=== PATIENT | female | born 1950 | race Caucasian/White ===

== ENCOUNTER → 2016-10-09 | Outpatient (CLI) | payer OTHER ==
--- NOTE | 2016-10-09 15:45 | MA ---
Screening Digital Mammogram Clinical Indications: Routine screening. Technique: Standard cephalocaudal and mediolateral oblique projections are obtained. This examinati on is processed by the [employer] computer aided detection system. Comparison: June 2015, April 2014, April 2013 and September 2011 Breast density: B; There are scattered fibroglandular densities. Findings: CAD was reviewed. No suspicious findings are identified. Impression: Negative mammogram. . BI-RADS 1. Recommendation: Routine screening is recommended in one year. [facility] send [facility] result letter to the patient. Negative mammography should not preclude additional workup of a clinically suspicious finding. The patient's information is entered into a reminder system with a target due date for her next mammo gram.
== END ==
LOC: CIMAGING 12:21
DX: Z12.31 Encounter for screening mammogram for malignant neoplasm of breast (principal)
CPT/HCPCS: G0202

== ENCOUNTER → 2017-07-12 | Outpatient (CLI) | payer OTHER | LOC: FIMAGING 16:17 | PROVIDERS: ATTEND Physician Assistant | DX: M75.121 Complete rotator cuff tear or rupture of right shoulder, not specified as traumatic (principal); M75.81 Other shoulder lesions, right shoulder; M25.411 Effusion, right shoulder; M19.011 Primary osteoarthritis, right shoulder ==

== ENCOUNTER 2017-08-22 05:54 | Day surgery (SDC) | payer OTHER ==
[2017-08-22] MEDS ORDERED: LR 1,000 ML IV ONE (06:11)
[2017-08-22] MEDS ORDERED: ceFAZolin 2 GM/SWFI 2 GM/20 ML SYR IVP ONE (06:49)
--- NOTE | 2017-08-22 06:49 | PDHPUP ---
History & Physical Update H&P update statement: This history and physical update is based on an assessment of the patient which was completed after admission or registration (within 24 hours), but prior to the surgery/procedure. RRR CTAB 08/22/17
[2017-08-22] MEDS ORDERED: LIDOCAINE 1% 300 MG/30 ML SDV ONE (06:51)
[2017-08-22] MEDS ORDERED: BUPIVACAINE 0.5% 30 ML SDV ONE (06:51)
[2017-08-22] MEDS ORDERED: DEXAMETHASONE 10 MG/ML VIAL ONE (07:07)
[2017-08-22] MEDS ORDERED: MIDAZOLAM 2 MG/2 ML VIAL ONE ×2 (07:08→07:54)
[2017-08-22] MEDS ORDERED: PROPOFOL/EMULSION 500 MG/50 ML BOTTLE IV ONE (07:08)
[2017-08-22] MEDS ORDERED: LIDO/EPI 1% **for epidural** 30 ML SDV ONE (07:16)
[2017-08-22] MEDS ORDERED: LR 500 ML IV PRN (07:59)
[2017-08-22] MEDS ORDERED: ALBUTEROL 3 ML DEYVIAL IH PRN (07:59)
[2017-08-22] MEDS ORDERED: NALOXONE HCL 0.4 MG/ML INJ IVP PRN (07:59)
[2017-08-22] MEDS ORDERED: DEXAMETHASONE 4 MG/ML VIAL IVP PRN (07:59)
[2017-08-22] MEDS ORDERED: PROMETHAZINE HCL 25 MG/ML INJ IVP PRN (07:59)
[2017-08-22] MEDS ORDERED: HYDROCODONE/APAP 5/325 TAB PO PRN (07:59)
[2017-08-22] MEDS ORDERED: ONDANSETRON 4 MG/2 ML VIAL IVP PRN (07:59)
[2017-08-22] MEDS ORDERED: OXYCODONE/APAP 5/325 TAB PO PRN (07:59)
[2017-08-22] MEDS ORDERED: ACETAMINOPHEN 500 MG TAB PO PRN (07:59)
[2017-08-22] MEDS ORDERED: MEPERIDINE 25 MG/ML SYR IVP PRN (07:59)
--- NOTE | 2017-08-22 07:59 | PDANEPAE ---
ANE Past Medical History - Cardiovascular History Hx Hypertension: Yes Hx Arrhythmias: No Hx Chest Pain: No Hx Coronary Artery / Peripheral Vascular Disease: No Hx CHF / Valvular Disease: No Hx Palpitations: No Cardiovascular History Comment: NO CP - Pulmonary History Hx COPD: No Hx Asthma/Reactive Airway Disease: No Hx Recent Upper Respiratory Infection: No Hx Oxygen in Use at Home: No Hx Sleep Apnea: Yes Sleep Apnea Screening Result - Last Documented: Positive Pulmonary History Comment: DIO POS- [facility] SLEEP STUDY 5 Y AGO, USES CPAP - Neurologic History Hx Cerebrovascular Accident: No Hx Seizures: No Hx Dementia: No - Endocrine History Hx Diabetes: No - Renal History Hx Renal Disorders: No - Liver History Hx Hepatic Disorders: No - Neurological & Psychiatric Hx Hx Neurological and Psychiatric Disorders: Yes Neurological / Psychiatric History Comment: depression - Cancer History Hx Cancer: No - Congenital Disorder History Hx Congenital Disorders: No - GI History Hx Gastrointestinal Disorders: Yes Gastrointestinal History Comment: IBS - Other Health History Other Health History: Torn rotator cuff right shoulder. HX FX NOSE - Chronic Pain History Chronic Pain: No - Surgical History Prior Surgeries: 2013 R TKA. R KNEE SCOPE X2. L KNEE TIBIAL OSTEOYTOMY. L KNEE HARDWARE REM. TKA L 12 Y AGO. HYSTEROSCOPY '10. D AND C. LAP OVARIAN CYST ANE Review of Systems Review of Systems: - Exercise capacity METS (RN): 4 METS ANE Patient History - Allergies Allergies/Adverse Reactions: IV CONTRAST Allergy (Intermediate, Uncoded 08/16/15 11:29) Hives - Home Medications Home Medications: Losartan Potassium [Cozaar] 50 mg PO DAILY 09/26/15 [Last Taken Unknown] buPROPion XL [Wellbutrin Xl] 150 mg PO DAILY 08/07/17 [Last Taken Unknown] - NPO status NPO Since - Liquids (Date): 08/22/17 NPO Since - Liquids (Time): 04:45 NPO Since - Solids (Date): 08/21/17 NPO Since - Solids (Time): 20:00 - Smoking Hx Smoking Status: Former smoker - Family Anes Hx Family Hx Anesthesia Complications: NONE ANE Labs/Vital Signs - Vital Signs Blood Pressure: 163/93 Heart Rate: 72 Respiratory Rate: 16 O2 Sat (%): 95 Height: 160.02 cm Weight: 105.687 kg ANE Physical Exam - Airway Neck exam: FROM, short neck Mallampati Score: Class 1 Mouth exam: normal dental/mouth exam - Pulmonary Pulmonary: no respiratory distress, no rales or rhonchi, clear to auscultation, reduced air movement - Cardiovascular Cardiovascular: regular rate and rhythym, no murmur, rub, or gallop ANE Anesthesia Plan Anesthesia Plan: general endotracheal anesthesia Regional Anesthesia: single shot NB, supraclavicular BP NB
[2017-08-22] MEDS ORDERED: KETOROLAC 30 MG/1 ML SDV ONE (08:01)
[2017-08-22] MEDS ORDERED: SUGAMMADEX SODIUM 200 MG/2 ML VIAL IVP ONE (08:01)
[2017-08-22] MEDS ORDERED: ONDANSETRON 4 MG/2 ML VIAL ONE (08:01)
[2017-08-22] MEDS ORDERED: METOCLOPRAMIDE 10 MG/2 ML VIAL ONE (08:01)
[2017-08-22] MEDS ORDERED: RANITIDINE 50 MG/2 ML VIAL ONE (08:01)
[2017-08-22] MEDS ORDERED: ROCURONIUM 50 MG/5 ML VIAL ONE (08:01)
[2017-08-22] MEDS ORDERED: ROPIVACAINE HCL 150 MG/30 ML INJ ONE (08:02)
[2017-08-22] MEDS ORDERED: LIDOCAINE 2% 5 ML SDV ONE (08:02)
[2017-08-22] MEDS ORDERED: PROPOFOL 200 MG/20 ML VIAL ONE (08:38)
[2017-08-22] MEDS: EPINEPHrine 30 MG/30 ML MDV (0.1 MG/0.1 ML) ONE ×2 (09:33→09:37)
--- NOTE | 2017-08-22 09:52 | POSTOPPROG ---
Post Op Note Date of Operation: 08/22/17 Surgeon: Richard Rivas Helpdesk Analyst: Wendy Christensen PA-C Anesthesia: GET(General Endotracheal) Pre-op Diagnosis: right shoulder rotator cuff tear Post-op Diagnosis: right shoulder rotator cuff tear Procedure: right shoulder arthroscopy with labral debridment, RCR, biceps tenotomy Inf/Abcess present in the surg proc area at time of surgery?: No Depth: Superfical (Skin SQ) EBL: Minimal
[2017-08-22] MEDS ORDERED: fentaNYL 100 MCG/2 ML INJ ONE (10:21)
[2017-08-22] MEDS: fentaNYL 100 MCG/2 ML INJ IVP PRN ×2 (10:23→10:43)
[2017-08-22 10:40] VITALS: RESP 18
--- NOTE | 2017-08-22 10:53 | POSTANESTH ---
Post Anesthetic Evaluation Cardiovascular Status: Normal, Stable Respiratory Status: Normal, Stable Level of Consciousness/Mental Status: Can Participate in Eval Pain Control: Adequate, Prn Tx Ordered Nausea/Vomiting Control: Adequate, Prn Tx Ordered Complications Possibly Related to Anesthesia: None Noted
[2017-08-22 10:54] VITALS: PULSE 80; TEMP 97.5
[2017-08-22] MEDS ORDERED: OXYCODONE/APAP 5/325 TAB ONE (11:52)
[2017-08-22 11:57] VITALS: BP 134/73; O2SAT 92
--- NOTE | 2017-08-23 03:00 | GOP ---
[f rep st] OPERATIVE REPORT PATIENT: GILLIAN GIRARD DATE OF SERVICE: 08/22/17 PATIENT DATE OF : 1950 SURGEON: Richard Rivas M.D. DUMPSTER OPERATOR: Wendy Christensen PA-C Mrs. Ayala assistance was medically necessary for patient positioning and the retraction of vital structures. ANESTHESIA: General / regional anesthesia PRE-OPERATIVE DIAGNOSES: Right shoulder subacromial impingement (ICD-10 code M75.50 bursitis of shoulder ) Right shoulder acromioclavicular joint arthritis (ICD-10 code M13.119 acromioclavicular joint arthritis) Right shoulder SLAP tear (ICD-10 code S43.439S Superior glenoid labrum lesion of shoulder) Right shoulder biceps tenosynovitis (ICD-10 code M75.20 bicipital tendinitis of shoulder) Right shoulder full thickness rotator cuff tear (ICD-10 code M75.120 complete rotator cuff tear) POST-OPERATIVE DIAGNOSES: Right shoulder subacromial impingement (ICD-10 code M75.50 bursitis of shoulder ) Right shoulder acromioclavicular joint arthritis (ICD-10 code M13.119 acromioclavicular joint arthritis) Right shoulder SLAP tear (ICD-10 code S43.439S Superior glenoid labrum lesion of shoulder) Right shoulder biceps tenosynovitis (ICD-10 code M75.20 bicipital tendinitis of shoulder) Right shoulder full thickness rotator cuff tear (ICD-10 code M75.120 complete rotator cuff tear) OPERATIVE PROCEDURES: CPT code 21614 Right shoulder arthroscopic subacromial decompression CPT code 29233 Right shoulder arthroscopic debridement, extensive CPT code 81861 Right shoulder arthroscopic distal clavicle excision CPT code 16277 Right shoulder arthroscopic rotator cuff repair CPT code 58376 Right shoulder long head of biceps tenotomy EBL: 4cc COMPLICATIONS: None IMPLANTS: Two Arthrex 5.5mm bio-composite corkscrew anchors triple loaded with # 2 Fiber Wire, two Arthrex 4.75 mm bio-composite swivel lock anchors, Arthrex biceps button BRIEF CLINICAL NOTE: This is a very pleasant 67 year old female with a significant history for right shoulder subacromial impingement, acromioclavicular joint arthritis, degenerative labral tears, long head of biceps tendinitis and a full thickness rotator cuff tear . As such, I have discussed the risks, benefits, alternatives, and complications associated with both non-operative (specifically, observation, PT, activity modifications, NSAIDs, injection) and operative (specifically, right shoulder arthroscopy with subacromial decompression, distal clavicle excision, labral debridement, long head of biceps tenotomy, and rotator cuff repair) forms of treatment. The patient fully understands the risks, benefits, alternatives, and complications associated with both forms of treatment and wishes to proceed with operative intervention as outlined above. The patient has also signed the informed consent form for surgery. OPERATIVE NOTE: On the day of surgery, all of the patients questions were answered. The patient was then transferred from the pre-operative area into the operating room and a formal, Time-Out procedure was performed. The patient was identified by name, medical record number, social security number, and date of . In addition, the patients right upper extremity was identified as the correct portion of the patients body for surgery with the patients right shoulder being identified as the correct portion of that extremity for surgery. The anesthesia team administered pre-operative antibiotics for prophylaxis. The patient was then transferred to the operating room table and placed in the beach chair position while padding all bony prominences. The extremity was then prepped and draped in the normal sterile fashion. A sterile marking pen was then utilized to buck out standard posterior, lateral , and anterior arthroscopic portal incisions. Next, an 18-gauge spinal needle was utilized to localize the glenohumeral joint and the joint was insufflated with 60cc of a 50:50 mixture of 1% lidocaine with 1:200,000 components of epinephrine and normal saline. Following this, an 11-blade was utilized to make the posterior portal incision. The blunt obturator and arthroscopic cannula was then advance through the posterior portal incision into the gleno- humeral joint. The arthroscope was then inserted and the shoulder was brought into external rotation. Next, an 18-gauge spinal needle was utilized to create the anterior portal with an outside-in technique. A medium-sized [employer]rex corckscrew cannula was then inserted through the anterior portal incision. At this point, a diagnostic arthroscopy was performed in the glenohumeral space. The following structures were identified and examined with the following findings: Glenohumeral diagnostic arthroscopy Glenoid: mild degenerative changes Humeral head: mild degenerative changes Glenoid labrum Anterior labrum: degenerative tearing Superior labrum: degenerative tearing Posterior labrum: degenerative tearing Inferior labrum: intact Biceps tendon: tendinitis and partial thickness tear Glenohumeral ligaments: SGHL: intact MGHL: intact AIGHL: intact PIGHL: intact Undersurface of rotator cuff: Subscapularis: minimal undersurface tearing Supraspinatus: full thickness tear Infraspinatus: full thickness tear Following this, a 4.0mm aggressive cutter was then inserted through the anterior portal and an extensive debridement was performed within the glenohumeral joint. The cautery wand was inserted through the anterior portal and the long head of the biceps tendon was released off of the supraglenoid tubercle (long head of biceps tenotomy). Following this, the arthroscope was then removed from the gleno-humeral joint and posterior cannula was then re-directed into the subacromial space. The arthroscope was then re-inserted into the posterior cannula. Next, an 18-gauge spinal needle was used to create a straight lateral portal with an outside-in technique. A large Cosmos[employer]rex corkscrew cannula was then through the lateral portal incision. The 4.0mm aggressive cutter and the cautery wand were utilized to excise the subacromial-subdeltoid bursa. At this point, a diagnostic arthroscopy was performed in the subacromial space. The following structures were identified and examined with the following findings: Subacromial space diagnostic arthroscopy Subacromial / subdeltoid bursa: hypertrophic and inflamed Acromion: undersurface spurring Coracoacromial ligament: intact Acromioclavicular joint: arthritis and undersurface spurring Bursal surface of rotator cuff muscles: Supraspinatus: full thickness tear Infraspinatus: full thickness tear Following this, the 4.0mm barrel petey was utilized to perform both an acromioplasty as well as an arthroscopic distal clavicle excision. This provided for an excellent subacromial decompression. The torn edge of the rotator cuff was then thoroughly debrided with the 4.0mm aggressive cutter. The rotator cuff footprint was also debrided with both the aggressive cutter and the barrel petey. The medial row anchor sites were then localized with outside-in technique utilizing an 18-gauge spinal needle. A 2- mm incision was then made at the anterior medial row anchor site and the 4.5mm punch was advanced through the soft tissue and impacted into the bone of the greater tuberosity. The punch was removed and an Arthrex 5.5mm bio-composite corkscrew anchor (triple loaded with #2 Fiber Wire) was then inserted and manually checked for pull-out strength. The same procedure was then repeated for the placement of a second anchor of the same kind along the posterior aspect of the medial row. The suture strands from both medial row anchors were then passed through the torn edge of the rotator cuff moving from posterior to anterior. Each of the six pairs of suture strands were then sequentially tightened and tied moving from posterior to anterior. Next, several of the anterior suture strands were passed through the tip of an Arthrex 4.75mm bio-composite swivel lock anchor. A supervising airplane pilot hole was then created for the Swivel lock anchor along the lateral aspect of the anterior greater tuberosity. The anchor tip was then inserted into the supervising airplane pilot hole and each suture strand was sequentially tightened. The Swivel lock anchor was then fully inserted. The central suture strand was removed from the anchor and the remaining suture strands were cut. The same procedure was then repeated with a second 4.75mm Swivel lock anchor which was inserted along the lateral aspect of the posterior greater tuberosity. All remaining suture strands from the medial row anchors were then cut. Next, the arm was brought through internal rotation, external rotation, adduction and abduction. All motions demonstrated an excellent repair of the cuff to the footprint. Meticulous hemostasis was then obtained in the subacromial space with the cautery wand. Arthroscopic pictures were taken and saved. The arthroscope and all instruments were then removed from the joint. All wounds were copiously irrigated with sterile normal saline. The subcutaneous plane was re-approximated with 3-0 vicryl sutures and the skin was re-approximated with 4-0 moncryl. The skin was then cleaned with sterile normal saline and dried. Dermabond was then applied to all of the incisions followed by a Xeroform gauze dressing, a dry sterile dressing, and an occlusive tegaderm dressing. The arm was then placed into a sling and swathe. The patient was reversed from anesthesia and transferred from the operating room table onto the post-operative gurney. The patient was then transferred from the operating room to the PACU in stable condition. POST-OPERATIVE PLAN: The patient will remain in the current dressing and sling for the next 2 weeks. The patient will follow-up in 2 weeks for a wound check and initiation of gentle forearm, elbow, and shoulder ROM exercises. /[id number]/MODL MTDD
== END 2017-08-22 12:50 | disposition home or self-care (01) ==
LOC: FSGY 05:54
PROVIDERS: ATTEND Orthopaedic Surgery Hand Surgery
DX: M75.121 Complete rotator cuff tear or rupture of right shoulder, not specified as traumatic (principal); M75.21 Bicipital tendinitis, right shoulder; M75.51 Bursitis of right shoulder; M13.111 Monoarthritis, not elsewhere classified, right shoulder; S43.4 Sprain of shoulder joint; G47.30 Sleep apnea, unspecified
CPT/HCPCS: C1713; J0171; J0690; J1100; J1885; J2250; J2405; J2704; J2765; J2780; J2795; J3010

== ENCOUNTER → 2018-04-11 | Outpatient (CLI) | payer OTHER | LOC: FIMAGING 10:33 | PROVIDERS: ATTEND Internal Medicine | DX: Z12.31 Encounter for screening mammogram for malignant neoplasm of breast (principal) ==

== ENCOUNTER 2018-11-25 07:05 | Day surgery (SDC) | payer OTHER, MEDICARE ==
--- NOTE | 2018-11-24 16:46 | SOAPPROG ---
SOAP Progress Note Assessment/Plan: HISTORY AND PHYSICAL Name GILLIAN GIRARD (68yo, F) ID# [id number] Appt. Date/Time 11/18/2018 02:30PM 1950 Service Dept. MAIN OFFICE Provider EMILY LOPEZ PA-C Insurance Med Primary: MEDICARE-[employer] (MEDICARE) Insurance # : [id number] Med Secondary: AARP (MEDICARE SUPPLEMENT) Insurance # : [id number] Prescription: ORX - Member is eligible. details Chief Complaint 11/25/2018 Left shoulder arthroscopy with SAD, DCE, labral debridement, LHB tenotomy and/ or tenodesis, and rotator cuff debridement and/or repair Patient's Care Team Primary Care Provider: SARI YUNG MD: [address] [place] [id number], , Patient's Pharmacies [id number] ([place]): [address] [facility] [id number], , Vitals 11/18/2018 02:52 pm Ht: 5 ft 3 in Allergies Reviewed Allergies IODINATED CONTRAST- ORAL AND IV DYE Medications Reviewed Medications buPROPion HCl XL 150 mg 24 hr tablet, extended release TK 1 T PO QD 09/18/18 filled [facility] losartan 50 mg tablet TK 1 T PO QD 11/17/18 filled [facility] metroNIDAZOLE 1 % topical gel 02/18/18 filled [employer] Nystop 100,000 unit/gram topical powder 01/29/17 filled [facility] [employer] venlafaxine ER 37.5 mg capsule,extended release 24 hr TK 1 C PO QD 10/14/18 filled [employer] Vaccines None recorded. Problems Reviewed Problems Osteoarthritis of knee, Right Villonodular synovitis of knee Knee pain Biceps tendinitis - Onset: 07/31/2017, Right Tear of medial meniscus of knee Full thickness rotator cuff tear - Onset: 07/31/2017, Right Rotator cuff impingement syndrome - Onset: 06/20/2018, Left Family History Reviewed Family History Mother - Problem (onset age: 77) ( age: 77) - lung Cancer - Hypertensive disorder ( age: 77) - Malignant neoplastic disease Paternal Grandmother - Diabetes mellitus (onset age: 80) ( age: 80) Maternal Grandmother - Heart disease ( age: 80) Father - Heart disease Social History Reviewed Social History Smoking Status: Former smoker Non-smoker Occupation: Pharmacist Employer: [employer] Chewing tobacco: none Alcohol intake: Occasional Alcohol-years of use: 42 Caffeine intake: None Illicit drugs: no Exercise level: Occasional Sporting activities: hike, kayak, bike Hand Dominance: Left Education: Post Graduate Live alone or with others?: with others Surgical History Reviewed Surgical History Shoulder arthroscopy (surg) - 08/22/2017 Total knee arthroplasty (surg) - 12/20/2014 - RT TKA Knee arthroscopy (surg) - 02/09/2014 - Arthroscopic partial medial and lateral meniscectomy, synovectomy, excision articular cartilage flap lesions with tricompartment chondroplasty RT knee Orthopaedic Surgery - 02/2014 - right knee scope Orthopaedic Surgery - 1992 - left total knee Other - 1991 - High tibial osteotomy Orthopaedic Surgery - 1984 - right knee scope [employer] History (not configured) Obstetric History None recorded. Past Pregnancies None recorded. Past Medical History Reviewed Past Medical History Arthritis: Y Depression: Y Hypertension: Y Sleep Apnea: Y Screening None recorded. 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 Large full thickness tear of the majority of the infraspinatus tendon. Moderate tendinopathy and partial tear distal subscapularis tendon. Moderate tendinopathy long head biceps tendon. - Sleep Apnea -- uses a CPAP machine at night - 08/22/17 -- right shoulder arthroscopy with labral debridement, SAD, DCE, large RCR, biceps tenotomy -- doing well - 04/2018 -- insidious onset left shoulder pain -06/17/18 -- left shoulder MRI -- mild to moderate tendinosis and partial thickness tearing of supraspinatus, infraspinatus, and subscapularis, long head of biceps tendinitis, degenerative labral tears, TASHA -07/11/18 -- left shoulder subacromial space injection with 40% symptomatic relief She presents today to discuss her treatment options for her left shoulder ROS ROS as noted in the HPI Physical Exam Patient is a 68-year-old female. Bilateral shoulder examination Inspection/palpation: Right: Normal resting posture. 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 Large full thickness tear of the majority of the infraspinatus tendon. Moderate tendinopathy and partial tear distal subscapularis tendon. Moderate tendinopathy long head biceps tendon. - Sleep Apnea -- uses a CPAP machine at night - 08/22/17 -- right shoulder arthroscopy with labral debridement, SAD, DCE, large RCR, biceps tenotomy -- doing well - 04/2018 -- insidious onset left shoulder pain -06/17/18 -- left shoulder MRI -- mild to moderate tendinosis and partial thickness tearing of supraspinatus, infraspinatus, and subscapularis, long head of biceps tendinitis, degenerative labral tears, TASHA -07/11/18 -- left shoulder subacromial space injection with 40% symptomatic relief -10/10/18 -- left shoulder subacromial space injection For the left shoulder: - I have discussed with the patient the risks, benefits, alternatives and complications associated with both non-operative (specifically, observation, activity modifications, NSAIDs, PT, MRI) and operative (specifically, left shoulder arthroscopy with SAD, DCE, labral debridement, LHB tenotomy, and rotator cuff debridement and/or repair) forms of treatment - The patient fully understands the risks, benefits, alternatives, and complications associated with these forms of treatment and wishes to proceed with surgery - She has signed the informed consent form for surgery and surgery will be scheduled for the near future. - She would like to bring her old sling from her previous right shoulder surgery to her next surgery for her left shoulder. 1. Rotator cuff impingement syndrome - Left M75.102: Unspecified rotator cuff tear or rupture of left shoulder, not specified as traumatic 2. Pain of left shoulder joint M25.512: Pain in left shoulder 11/24/18 16:46 ICD10 Worksheet Patient Problems: Problems Problem Status Onset Arthritis of right knee Acute
[2018-11-25] MEDS ORDERED: LR 1,000 ML IV ONE (07:34)
[2018-11-25] MEDS ORDERED: LIDOCAINE 1% 300 MG/30 ML SDV ONE (08:26)
[2018-11-25] MEDS ORDERED: BUPIVACAINE 0.5% 30 ML SDV ONE (08:27)
[2018-11-25] MEDS ORDERED: EPINEPHrine 30 MG/30 ML MDV (0.1 MG/0.1 ML) ONE (08:27)
[2018-11-25] MEDS ORDERED: ceFAZolin 2 GM/DEXTROSE 100 ML IV ONE (08:36)
--- NOTE | 2018-11-25 08:36 | PDHPUP ---
History & Physical Update H&P update statement: This history and physical update is based on an assessment of the patient which was completed after admission or registration (within 24 hours), but prior to the surgery/procedure. H&P update: H&P reviewed & patient examined, no change in patient's condition since H&P completed (Heart: RRR)
--- NOTE | 2018-11-25 08:46 | PDANEPAE ---
ANE History of Present Illness L shoulder scope and RTC repair ANE Past Medical History - Cardiovascular History Hx Hypertension: Yes Hx Arrhythmias: No Hx Chest Pain: No Hx Coronary Artery / Peripheral Vascular Disease: No Hx CHF / Valvular Disease: No Hx Palpitations: No Cardiovascular History Comment: NO CP - Pulmonary History Hx COPD: No Hx Asthma/Reactive Airway Disease: No Hx Recent Upper Respiratory Infection: No Hx Oxygen in Use at Home: No Hx Sleep Apnea: Yes Sleep Apnea Screening Result - Last Documented: Positive Pulmonary History Comment: DIO USES CPAP - Neurologic History Hx Cerebrovascular Accident: No Hx Seizures: No Hx Dementia: No - Endocrine History Hx Diabetes: No - Renal History Hx Renal Disorders: No - Liver History Hx Hepatic Disorders: No - Neurological & Psychiatric Hx Hx Neurological and Psychiatric Disorders: Yes Neurological / Psychiatric History Comment: depression - Cancer History Hx Cancer: No - Congenital Disorder History Hx Congenital Disorders: No - GI History Hx Gastrointestinal Disorders: No Gastrointestinal History Comment: IBS - Other Health History Other Health History: Torn rotator cuff right shoulder. HX FX NOSE. TINITUS - Chronic Pain History Chronic Pain: No - Surgical History Prior Surgeries: 2013 R TKA. R KNEE SCOPE X2. L KNEE TIBIAL OSTEOYTOMY. L KNEE HARDWARE REM. TKA L 12 Y AGO. SHOULDER SURGERY 2017. HYSTEROSCOPY '10. D AND C. LAP OVARIAN CYST ANE Review of Systems Review of Systems: - Exercise capacity METS (RN): 4 METS ANE Patient History - Allergies Allergies/Adverse Reactions: Iodinated Contrast- Oral and IV Dye Allergy (Verified 11/25/18 07:38) Hives - Home Medications Home medications: home medication list seen and reviewed Home Medications: Losartan Potassium [Cozaar 50 mg (*)] 50 mg PO DAILY 09/26/15 [Last Taken 12:00] buPROPion XL [Wellbutrin 150mg XL] 150 mg PO DAILY 08/07/17 [Last Taken 12:00] Venlafaxine Xr [Effexor Xr 37.5MG (*)] 37.5 mg PO DAILY 11/18/18 [Last Taken 12:00] - NPO status NPO Status: no food or drink >8 hours NPO Since - Liquids (Date): 11/25/18 NPO Since - Liquids (Time): 05:00 NPO Since - Solids (Date): 02/18/19 NPO Since - Solids (Time): 22:30 - Anes Hx Anes Hx: no prior problems - Smoking Hx Smoking Status: Former smoker - Alcohol Use Alcohol Use: None - Family Anes Hx Family Hx Anesthesia Complications: NONE ANE Labs/Vital Signs - Vital Signs Blood Pressure: 146/80 Heart Rate: 69 Respiratory Rate: 16 O2 Sat (%): 95 Height: 162.56 cm Weight: 111.13 kg ANE Physical Exam - Airway Neck exam: decreased ROM Mallampati Score: Class 2 Mouth exam: normal dental/mouth exam - Pulmonary Pulmonary: no respiratory distress - Cardiovascular Cardiovascular: regular rate and rhythym - ASA Status ASA Status: III ANE Anesthesia Plan Anesthesia Plan: GA w LMA Regional Anesthesia: interscalene BP NB
[2018-11-25] MEDS ORDERED: LIDO/EPI 1% **for epidural** 30 ML SDV ONE (08:53)
[2018-11-25] MEDS ORDERED: fentaNYL 100 MCG/2 ML INJ ONE (08:57)
[2018-11-25] MEDS ORDERED: PROPOFOL/EMULSION 500 MG/50 ML BOTTLE IV ONE ×2 (08:57→10:18)
[2018-11-25] MEDS ORDERED: MIDAZOLAM 2 MG/2 ML VIAL ONE (08:59)
[2018-11-25] MEDS ORDERED: ePHEDrine SULFATE 25 MG/5 ML SYR ONE ×2 (09:34→09:50)
[2018-11-25] MEDS ORDERED: DEXAMETHASONE 4 MG/ML VIAL ONE ×2 (10:04)
[2018-11-25] MEDS ORDERED: PHENYLEPHRINE 10 MG/ML SDV ONE (10:14)
[2018-11-25] MEDS ORDERED: METOCLOPRAMIDE 10 MG/2 ML VIAL IVP PRN (10:27)
[2018-11-25] MEDS ORDERED: ACETAMINOPHEN 500 MG TAB PO PRN (10:27)
[2018-11-25] MEDS ORDERED: DEXAMETHASONE 4 MG/ML VIAL IVP PRN (10:27)
[2018-11-25] MEDS ORDERED: PROMETHAZINE HCL 25 MG/ML INJ IVP PRN (10:27)
[2018-11-25] MEDS ORDERED: oxyCODONE IR 5 MG TAB PO PRN (10:27)
[2018-11-25] MEDS ORDERED: LR 500 ML IV PRN (10:27)
[2018-11-25] MEDS ORDERED: PHENYLEPHRINE HCL 100 MCG/ML SYR IVP PRN (10:27)
[2018-11-25] MEDS ORDERED: ONDANSETRON 4 MG/2 ML VIAL IVP PRN (10:27)
[2018-11-25] MEDS ORDERED: fentaNYL 100 MCG/2 ML INJ IVP PRN (10:27)
[2018-11-25] MEDS ORDERED: NALOXONE HCL 0.4 MG/ML INJ IVP PRN ×2 (10:27)
[2018-11-25] MEDS ORDERED: HYDROCODONE/APAP 5/325 TAB PO PRN (10:27)
[2018-11-25] MEDS ORDERED: DIAZEPAM 5 MG/ML 1 ML SYR IVP PRN (10:27)
[2018-11-25] MEDS ORDERED: LABETALOL HCL 5 MG/ML 20 ML MDV IVP PRN (10:27)
[2018-11-25] MEDS ORDERED: ALBUTEROL 3 ML DEYVIAL IH PRN (10:27)
[2018-11-25] MEDS ORDERED: ONDANSETRON 4 MG/2 ML VIAL ONE (10:40)
[2018-11-25 12:49] VITALS: BP 109/77
--- NOTE | 2018-11-25 16:52 | POSTANESTH ---
Post Anesthetic Evaluation Cardiovascular Status: Normal, Stable Respiratory Status: Normal, Stable Level of Consciousness/Mental Status: Can Participate in Eval, Other, See Comment Nausea/Vomiting Control: Adequate, Prn Tx Ordered Complications Possibly Related to Anesthesia: None Noted
== END 2018-11-25 12:51 | disposition home or self-care (01) ==
LOC: FSGY 07:05
PROVIDERS: ATTEND Orthopaedic Surgery Hand Surgery
PROC: 0PBB4ZZ Excision of Left Clavicle, Percutaneous Endoscopic Approach (ICD-10-PCS; principal; 2018-11-25 08:30)
PROC: 0LS24ZZ Reposition Left Shoulder Tendon, Percutaneous Endoscopic Approach (ICD-10-PCS; principal; 2018-11-25 08:30)
PROC: 0MN24ZZ Release Left Shoulder Bursa and Ligament, Percutaneous Endoscopic Approach (ICD-10-PCS; principal; 2018-11-25 08:30)
DX: M75.102 Unspecified rotator cuff tear or rupture of left shoulder, not specified as traumatic (principal); M25.512 Pain in left shoulder; G47.33 Obstructive sleep apnea (adult) (pediatric); Z96.651 Presence of right artificial knee joint
CPT/HCPCS: J0171; J0690; J1100; J2250; J2370; J2405; J2704; J3010

== ENCOUNTER 2018-12-03 12:45 | Emergency (ER) | payer OTHER, MEDICARE ==
--- NOTE | 2018-12-03 13:21 | EDPHY ---
H & P Time Seen by Provider: 12/03/18 12:57 HPI/ROS: HPI Right leg swelling and pain. History of recent surgery. 68-year-old female by private vehicle. This patient underwent arthroscopic shoulder surgery on November 25 of this year. She presents to the emergency department with complaint of a painful swelling involving the right medial proximal leg and migrating up across her knee to the distal medial thigh. She reports that she noticed it this morning. She reports that she has had associated tenderness involving this area. She denies any shortness of breath. No loss of sensation or weakness in the extremity. No history of trauma. She denies prior history of DVT. She is not on anticoagulation medication. ROS: Constitutional: No fever, no chills. No weakness. Respiratory: No cough. No shortness of breath. Cardiac: No chest pain, no palpitations. Musculoskeletal: No back pain. No neck pain. As above. Skin: No rashes. As above. Neurological: No headache. No focal weakness or altered sensation. Past medical history: Hyperlipidemia, right total knee replacement, D and C, fibroid surgery. As above. Social history: Nonsmoker. She is here by herself. No alcohol. Physical Exam: General Appearance: Alert, no distress. This patient is responding to questions appropriately and in full sentences. This patient appears well- hydrated and well-nourished. Eyes: Pupils equal and round no pallor or injection. No lid edema, erythema or injection. Right lower extremity exam: Significant for a tender erythematous, slightly indurated with palpable cord swelling involving the medial proximal aspect of the right leg. It is mildly warm to the touch. It migrates up across the medial aspect of her knee to the soft tissues of the medial distal thigh. The right lower extremity is neurovascularly intact. Otherwise no calf tenderness on palpation. Negative Susan sign. Respiratory: There are no retractions, lungs are clear to auscultation with good air movement bilaterally. Cardiovascular: Regular rate and rhythm. No murmur. Neurological: Motor sensory function is grossly intact. Cranial nerves are normal. Gait is normal. Skin: Warm and dry, no rashes. Musculoskeletal: Neck is supple and nontender. Extremities are symmetrical except noted. All joints range without pain or impingement. Psychiatric: No agitation. No depression. Database: EKG: Imaging: Right lower extremity ultrasound: Short-segment calf DVT. Thrombophlebitis over area described above. Results were discussed with staff radiologist Dr. Brian Young. Procedures: Emergency department course: Triage vital signs reviewed. She is mildly hypertensive. Vital signs are otherwise unremarkable. She is afebrile. Her presentation is consistent with a superficial thrombophlebitis involving the right lower extremity. Right lower extremity ultrasound to be obtained. 2:50 p.m., the patient was re-evaluated, she is resting comfortably at this time. Results of her ultrasound and diagnosis of thrombophlebitis and short segment DVT in her right calf vein discussed. Plan will be to put her on Xarelto. I will then have her follow up with her primary care physician Dr. Melissa Torres. She will be started on Xarelto in the emergency department. She does feel comfortable going home. She has friends and work colleagues here at the hospital in the room with her. Return to emergency department precautions were reviewed with her. All of her questions were answered. She was discharged from the emergency department in good condition. Differential Diagnosis: The differential diagnosis on this patient includes but is not limited to superficial thrombophlebitis of the right lower extremity, DVT of the right lower extremity, cellulitis of the right lower extremity. This represents a partial list of diagnoses considered. These considerations are based on history , physical exam, past history, reassessment and diagnostic testing. Smoking Status: Former smoker Constitutional: Initial Vital Signs Temperature (C) 36.6 C 12/03/18 12:48 Heart Rate 71 12/03/18 12:48 Respiratory Rate 16 12/03/18 12:48 Blood Pressure 156/86 H 12/03/18 12:48 O2 Sat (%) 92 12/03/18 12:48 O2 Delivery Mode Room Air Allergies/Adverse Reactions: Iodinated Contrast- Oral and IV Dye Allergy (Verified 12/03/18 12:47) Hives Home Medications: Medication Instructions Recorded Losartan Potassium [Cozaar 50 mg 50 mg PO DAILY 09/26/15 (*)] buPROPion XL [Wellbutrin 150mg XL] 150 mg PO DAILY 08/07/17 Venlafaxine Xr [Effexor Xr 37.5MG 37.5 mg PO DAILY 11/18/18 (*)] Rivaroxaban [Xarelto 15mg (*)] 15 mg PO BID #42 tab 12/03/18 Medical Decision Making - Diagnostics Imaging Results: Imaging Impressions Extremity Venous Study 12/03/18 13:05 Impression: Short segment of upper calf DVT communicating to a large tortuous thrombosed superficial varicosity in the medial calf. Results discussed with Dr. Salmon at 2:42 PM. - Data Points Medications Given: Discontinued Medications Rivaroxaban (Xarelto) 15 mg PO EDNOW ONE Stop: 12/03/18 14:57 Last Admin: 12/03/18 14:59 Dose: 15 mg Departure - Departure Disposition: Home, Routine, Self-Care Clinical Impression: Superficial thrombophlebitis of right leg, DVT (deep venous thrombosis) Condition: Good Instructions: Superficial Thrombophlebitis (ED), Deep Vein Thrombosis (ED) Additional Instructions: Read and follow provided instructions. Follow-up with your primary care physician in 1-2 days for re-evaluation. Xarelto/rivaroxaban dosing: You're to take 1, 15 mg tablet twice a day or every 12 hr for 21 days then you're to switch to a 20 mg tablet taken once daily for the remainder of treatment. Your primary care physician Dr. Melissa Torres will monitor this medication administration. I have written you a prescription for the 1st 21 days of medication administration. Return to the emergency department for worsening pain, redness or swelling in her right lower extremity, fever, shortness of breath or other serious concerns. Referrals: Melissa Torres MD [Primary Care Provider] - As per Instructions Prescriptions: Rivaroxaban [Xarelto 15mg (*)] 15 mg PO BID #42 tab
[2018-12-03 14:39] VITALS: BP 144/82
[2018-12-03] MEDS ORDERED: RIVAROXABAN 15 MG TAB PO ONE (14:56)
== END 2018-12-03 15:04 | disposition home or self-care (01) ==
DX: I82.4Z1 Acute embolism and thrombosis of unspecified deep veins of right distal lower extremity (principal); E78.5 Hyperlipidemia, unspecified; Z98.890 Other specified postprocedural states; I83.891 Varicose veins of right lower extremity with other complications